=== PATIENT | male | born 1980 | race Caucasian/White ===

== ENCOUNTER 2018-06-04 08:38 | Outpatient (CLI) | payer OTHER ==
--- NOTE | 2018-06-04 12:20 | MRI Report ---
Reason: PAIN IN RIGHT SHOULDER Procedure Date: 06/04/2018 Accession Number: [id number] / [id number] Procedure: MRI - Shoulder RT W/O CPT Code: FULL RESULT: EXAM: RIGHT SHOULDER MRI WITHOUT CONTRAST EXAM DATE: 06/04/2018 09:46 AM. CLINICAL HISTORY: Pain in right shoulder. COMPARISON: None. TECHNIQUE: Multiplanar, multisequence T1-weighted and fluid-sensitive sequences of the shoulder without contrast. Other: None. FINDINGS: Acromioclavicular Region: The acromion is type II. The acromioclavicular joint is unremarkable. The coracoacromial and coracoclavicular ligaments are intact. There is a subacromial bursal effusion. Glenohumeral Region: No subluxation. No effusion or loose bodies. The articular cartilage is unremarkable. Bone Marrow: No fracture, marrow edema or bone lesions. Labrum: The labrum is unremarkable on this nonarthrographic study. Musculature/Rotator Cuff: There is mild supraspinatus tendinosis. There is a low-grade partial-thickness tear of the humeral surface fibers of supraspinatus measuring approximately 9 x 15 mm. Infraspinatus and subscapularis appear unremarkable. Biceps Tendon: The long head of the biceps tendon and biceps amparo are intact. Other: The subcutaneous tissues are unremarkable. IMPRESSION: 1. Subacromial bursal effusion. 2. Tendinosis and a partial-thickness tear of the humeral surface fibers of the supraspinatus. [facility] MUSCULOSKELETAL RADIOLOGY SECTION
== END 2018-06-04 08:39 | disposition home or self-care (01) ==
LOC: DI 08:38
PROVIDERS: ATTEND General Practice
DX: M75.101 Unspecified rotator cuff tear or rupture of right shoulder, not specified as traumatic (principal); M75.91 Shoulder lesion, unspecified, right shoulder

== ENCOUNTER 2018-08-24 07:27 | Outpatient (CLI) | payer OTHER ==
--- NOTE | 2018-08-24 12:03 | MRI Report ---
Reason: RADICULOPATHY,CERVICAL REGION,CERVICALGIA Procedure Date: 08/24/2018 Accession Number: [id number] / [id number] Procedure: MRI - Cervical Spine W/O CPT Code: FULL RESULT: EXAM: MRI CERVICAL SPINE WITHOUT CONTRAST EXAM DATE: 08/24/2018 08:06 AM. CLINICAL HISTORY: Cervical region radiculopathy. Cervicalgia. Neck pain and right upper extremity pain. History of trauma. COMPARISONS: None. TECHNIQUE: Multiplanar, multisequence T1-weighted and fluid-sensitive sequences of the cervical spine without contrast. Other: None. FINDINGS: No suspicious marrow replacement is seen. Grade 1 retrolisthesis of C5 relative to C6 is seen. Loss of disk space height, diskogenic endplate edema and diskogenic endplate irregularity are present at this level particularly towards the right. Anterior disk protrusion and osteophyte formation are present at C5-C6. In the right occipital condyle note is made of a small hemangioma. No abnormal signal is seen in the cervical spinal cord. C2-C3: Unremarkable disk space. C3-C4: A minimal posterior disk protrusion is seen. Disk/osteophyte complex formation is seen involving the posterior lateral margin of the disk on the left. There is uncovertebral joint spurring on the left. Mild left foraminal stenosis is present. C4-C5: Minimal posterior disk protrusion is seen. A tiny posterior annular fissure seen on the left. C5-C6: A moderate posterior protrusion of disk and osteophyte is seen greater towards the right. There is effacement of ventral CSF space and flattening of the ventral cervical spinal cord. Bilateral uncovertebral joint spurring is seen. Mild to moderate left and moderate to severe right foraminal stenosis is present. C6-C7: A mild left paracentral disk protrusion is superimposed on a minimal posterior disk protrusion. There is flattening of the left ventral cervical spinal cord. Bilateral uncovertebral joint spurring is seen. There is very mild left foraminal stenosis. There is right foraminal narrowing. C7-T1: Unremarkable disk space. IMPRESSION: 1. Degenerative disk disease and osteophyte formation at C5-C6 result in mild central canal stenosis and bilateral foraminal stenosis with the foraminal stenosis greater on the right relative to the left. 2. There is a left-sided disk protrusion at C6-C7 which demonstrates mass effect on the left ventral to the cervical spinal cord. The central canal is borderline to mildly stenotic at this level. 3. Minimal degenerative disk disease is seen at C3-C4 and C4-C5. There is mild left foraminal stenosis at C3-C4. [facility]
== END 2018-08-24 07:28 | disposition home or self-care (01) ==
LOC: DI 07:27
PROVIDERS: ATTEND Orthopaedic Surgery
DX: M50.11 Cervical disc disorder with radiculopathy, high cervical region (principal); M50.123 Cervical disc disorder at C6-C7 level with radiculopathy; M48.02 Spinal stenosis, cervical region; M25.78 Osteophyte, vertebrae
CPT/HCPCS: 72141

== ENCOUNTER 2018-10-23 08:44 | Outpatient (CLI) | payer OTHER ==
--- NOTE | 2018-10-23 15:47 | MRI Report ---
Reason: OTHER SPONDYLOSIS W/RADICULOPATHY, LUMBOSACRAL REG Procedure Date: 10/23/2018 Accession Number: [id number] / [id number] Procedure: MRI - Lumbar Spine W/O CPT Code: FULL RESULT: EXAM: MRI LUMBAR SPINE WITHOUT CONTRAST EXAM DATE: 10/23/2018 10:21 AM. CLINICAL HISTORY: Other spondylosis with radiculopathy, lumbosacral. COMPARISON: None. TECHNIQUE: Multiplanar, multisequence T1-weighted and fluid-sensitive sequences of the lumbar spine from T12 to S1 without contrast. Other: None. FINDINGS: Grade 1 retrolisthesis of L3 relative to L4, L4 relative to L5, and L5 relative to S1 is noted. Loss of disk space height is seen at L5-S1. No abnormal signal is seen in the conus medullaris. No suspicious marrow replacement is seen. L1-L2 and L2-L3: No posterior disk protrusion. L3-L4: Minimal posterior disk protrusion is present with a posterior annular fissure. L4-L5: A mild posterior disk protrusion is seen greater towards the left of midline with flattening of the left ventral thecal sac. Superior lateral recess stenosis is seen on the left. Central canal is borderline. L5-S1: A minimal posterior disk protrusion is seen greater towards the right. Disk material extends near the right S1 nerve root as it exits the thecal sac. No foraminal stenosis. Facet/ligamentum flavum hypertrophy is seen in the mid and lower lumbar spine. There is again generally shallow central canal in mid and lower lumbar spine. IMPRESSION: 1. Degenerative disk disease is seen from L3 through S1. 2. A left-sided disk protrusion flattens the left ventral thecal sac at L4-L5 and results in superior lateral recess stenosis on the left. 3. A right-sided disk protrusion at L5-S1 extends near the right S1 nerve root as it exits the thecal sac. 4. A posterior annular fissure is seen at L3-L4. Comment: The following findings are so common in adults without low back pain that while we report their presence, they must be interpreted with caution and in the context of the clinical situation. (Reference Isabellek et al, Spine 2001) Prevalence of findings in patients without low back pain: Disk degeneration (any evidence): 92% Disk desiccation/T2 signal loss: 83% Disk height loss: 56% Disk bulge: 64% Disk protrusion: 32% Annular tear/high intensity zone: 38% [facility]
== END 2018-10-23 08:45 | disposition home or self-care (01) ==
LOC: DI 08:44
PROVIDERS: ATTEND Orthopaedic Surgery
DX: M51.36 Other intervertebral disc degeneration, lumbar region (principal); M51.37 Other intervertebral disc degeneration, lumbosacral region; M47.9 Spondylosis, unspecified; M51.26 Other intervertebral disc displacement, lumbar region; M53.86 Other specified dorsopathies, lumbar region; M51.27 Other intervertebral disc displacement, lumbosacral region
CPT/HCPCS: 72148

== ENCOUNTER 2019-10-22 06:33 | Day surgery (SDC) | payer OTHER ==
[2019-10-22] MEDS ORDERED: ONDANSETRON 4 MG/2 ML VIAL IVP ONE (06:34)
[2019-10-22] MEDS ORDERED: fentaNYL 250 MCG/5 ML VIAL IVP ONE (06:34)
[2019-10-22] MEDS ORDERED: PROPOFOL 200 MG/20 ML VIAL IVP ONE (06:34)
[2019-10-22] MEDS ORDERED: GLYCOPYRROLATE 1 MG/5 ML VIAL IVP ONE (06:34)
[2019-10-22] MEDS ORDERED: KETOROLAC 30 MG/ML VIAL IVP ONE (06:34)
[2019-10-22] MEDS ORDERED: HYDROmorphone 1 MG/ML SYRINGE IM ONE (06:34)
[2019-10-22] MEDS ORDERED: DEXAMETHASONE 10 MG/ML VIAL IVP ONE (06:34)
[2019-10-22] MEDS ORDERED: NEOSTIGMINE 1 MG/1 ML 10 ML MDV IVP ONE (06:34)
[2019-10-22] MEDS ORDERED: MIDAZOLAM 2 MG/2 ML VIAL IVP ONE (06:34)
[2019-10-22] MEDS ORDERED: LACTATED RINGERS 1,000 ML IV ONE ×2 (06:42→08:35)
[2019-10-22] MEDS ORDERED: cefTRIAXone 2 GM VIAL ONE (06:48)
--- NOTE | 2019-10-22 07:19 | ANESTHESIA ---
Pre-Anesthesia VS, & Labs - Diagnosis Right AC joint arthritis - Procedure Right shoulder SLAP repair Vital Signs: Temp Pulse Resp BP Pulse Ox 36.3 C L 68 16 141/106 H 97 10/22/19 06:45 10/22/19 06:45 10/22/19 06:45 10/22/19 06:45 10/22/19 06:45 Height 6 ft Weight (kg) 126.1 kg - NPO >8 hours - Lab Results Lab results reviewed: No Home Medications and Allergies Home Medications: Ambulatory Orders No Known Home Medications 10/20/19 No Known Home Medications 10/20/19 Allergies/Adverse Reactions: Allergies Allergy/AdvReac Type Severity Reaction Status Date / Time No Known Drug Allergies Allergy Verified 10/20/19 14:35 Anes History & Medical History - Anesthetic History Anesthesia Complications: reports: No previous complications Family history of Anesthesia Complications: Denies Family history of Malignant Hyperthermia: Denies - Medical History Cardiovascular: reports: None Pulmonary: reports: None Gastrointestinal: reports: None Urinary: reports: None Neuro: reports: None Musculoskeletal: reports: None, Chronic back pain, Other Endocrine/Autoimmune: reports: None Blood Disorders: reports: None Skin: reports: None Smoking Status: Never smoker Psychosocial: reports: No issues indicated - Surgical History General: Cholecystectomy, Appendectomy Exam General: Alert Dental: WNL, Other (Permanent retainer) Mouth Opening: Greater than 4 Fingerbreadths Neck Mobility: Normal Mallampati classification: II Thyromental Distance: greater than 6 cm Respiratory: Lungs clear Cardiovascular: Regular rate Plan Anesthesia Type: General Consent for Procedure(s) Verified and Reviewed: Yes Code Status: Attempt Resuscitation ASA classification: 1-Healthy patient Is this case an emergency?: No
[2019-10-22] MEDS ORDERED: BUPIVACAINE 0.25% PF 30 ML VIAL SUBQ ONE (08:34)
[2019-10-22] MEDS ORDERED: BUPIVACAINE 0.25% PF 30 ML VIAL ONE (08:37)
[2019-10-22] MEDS ORDERED: ACETAMINOPHEN 1,000 MG/100 ML 100 ML IV ONE (10:01)
[2019-10-22] MEDS ORDERED: ONDANSETRON 4 MG/2 ML VIAL IVP PRN (10:16)
[2019-10-22] MEDS ORDERED: oxyCODONE 5 MG TABLET PO PRN (10:16)
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
[2019-10-22] MEDS ORDERED: ONDANSETRON 4 MG/2 ML VIAL ONE (10:39)
[2019-10-22] MEDS ORDERED: oxyCODONE 5 MG TABLET ONE (11:05)
[2019-10-22 12:05] VITALS: BP 136/83
== END 2019-10-22 06:34 | disposition home or self-care (01) ==
LOC: SDS 06:33
PROVIDERS: ATTEND Orthopaedic Surgery
DX: M19.011 Primary osteoarthritis, right shoulder (principal); Z72.0 Tobacco use

== ENCOUNTER 2020-05-01 09:32 | Emergency (ER) | payer OTHER ==
[2020-05-01] MEDS ORDERED: KETOROLAC 30 MG/ML VIAL IVP STA (09:48)
[2020-05-01 10:14] LABS: BASOPHILS % (AUTO) 0.4 %; EOSINOPHILS % (AUTO) 0.1 %; HGB - HEMOGLOBIN 16.3 g/dL (14.0-18.0); LYMPHOCYTES # (AUTO) 1.3 10^3/uL (1.5-3.5); MEAN CORPUSCULAR HEMOGLOBIN 33.1 pg (27.0-31.0); MEAN CORPUSCULAR HGB CONC 35.1 g/dL (32.0-36.0); MEAN CORPUSCULAR VOLUME 94.1 fL (80.0-94.0); MEAN PLATELET VOLUME 10.5 fL (7.4-11.4); MONOCYTES # (AUTO) 0.6 10^3/uL (0.0-1.0); MONOCYTES % (AUTO) 6.5 %; NEUTROPHILS # (AUTO) 7.8 10^3/uL (1.5-6.6); NEUTROPHILS % (AUTO) 79.6 %; PLT - PLATELET COUNT 194 10^3/uL (130-450); RED BLOOD COUNT 4.93 10^6/uL (4.70-6.10); RED CELL DISTRIBUTION WIDTH 12.4 % (12.0-15.0); WHITE BLOOD COUNT 9.8 x10^3/uL (4.8-10.8)
[2020-05-01 10:24] LABS: ALBUMIN/GLOBULIN RATIO 1.7 (1.0-2.2); CALCIUM 10.3 mg/dL (8.5-10.3); CREATININE 1.7 mg/dL (0.6-1.2); TOTAL PROTEIN 7.9 g/dL (6.7-8.2)
[2020-05-01] MEDS ORDERED: LIDOCAINE-MPF 2% 9 ML in SODIUM CHLORIDE 0.9% 50 ML IV STA (10:24)
[2020-05-01] MEDS ORDERED: SODIUM CHLORIDE 0.9% 1,000 ML IV STA ×3 (10:25→13:06)
--- NOTE | 2020-05-01 10:50 | CT Report ---
PROCEDURE: Abdomen/Pelvis WO INDICATIONS: L flank pain, poss renal stone? TECHNIQUE: Noncontrast 5 mm thick sections acquired from the diaphragms to the symphysis. 5 mm coronal and sagi ttal reformats were then performed. For radiation dose reduction, the following was used: automated exposure control, adjustment of mA and/or kV according to patient size. COMPARISON: None. FINDINGS: Image quality: Excellent. ABDOMEN: Lung bases: Lung bases are clear. Heart size is normal. Solid organs: Liver and spleen are normal in size. Gallbladder is surgically absent. Pancreas is n ormal in contours. No adrenal nodules. Kidneys are normal in size. Moderate left-sided hydronephros is and perinephric fat stranding is seen. Prominence of proximal to mid left ureter is also seen with a 4 mm left mid ureteral stone. There is no right-sided hydronephrosis or perinephric fat stranding. Right ureter is within normal limits. Peritoneum and bowel: Unenhanced bowel loops demonstrate normal wall thickness and caliber. No free fluid or air. Nodes and vessels: No retroperitoneal or mesenteric adenopathy by size criteria. Aorta and inferior vena cava are normal in caliber. Miscellaneous: No ventral hernias. PELVIS: Genitourinary: Bladder wall thickness is normal. Miscellaneous: No inguinal hernias or adenopathy. Bones: No suspicious bony lesions. No vertebral body compression fractures. IMPRESSION: 1. 4 mm mid left ureteral stone with mild to moderate left-sided hydronephrosis and perinephric fat s tranding. No right-sided renal stone or hydronephrosis. Normal-appearing right ureter and urinary nelly dder. 2. No bowel obstruction. No abnormal bowel wall thickening. No free fluid or free air. Reviewed by: Emre Dow MD on 05/01/2020 10:49 AM PDT Approved by: Emre Dow MD on 05/01/2020 10:49 AM PDT Station ID: [id number]
--- NOTE | 2020-05-01 11:00 | ED Physician Documentation ---
History of Present Illness - Stated complaint Stated Complaint: BACK PX/L SIDE PX - Chief complaint Chief Complaint: Abd Pain - History obtained from History obtained from: Patient, Family - History of Present Illness Timing: Today Pain level max: 10 Pain level now: 10 - Additonal information Additional information: 40-year-old male presents to the emergency department left flank pain. States started suddenly. Nothing makes it better or worse. Blood in his urine. States he thinks he had one kidney stone in the past but is unsure. No fevers. No vomiting. No diarrhea. Review of Systems Constitutional: denies: Fever, Chills GI: denies: Nausea, Vomiting, Diarrhea Skin: denies: Rash Musculoskeletal: denies: Neck pain, Back pain Neurologic: denies: Headache PD PAST MEDICAL HISTORY - Past Medical History Cardiovascular: None Respiratory: None Neuro: None Endocrine/Autoimmune: None GI: None : None HEENT: None Psych: None Musculoskeletal: None, Chronic back pain, Other Derm: None - Past Surgical History General: Cholecystectomy, Appendectomy - Present Medications Home Medications: Ambulatory Orders Medication Instructions Recorded Confirmed Ibuprofen [Motrin] 800 mg PO Q8H PRN #30 tablet 05/01/20 Naproxen 500 mg PO 05/01/20 Oxycodone HCl/Acetaminophen 1 - 2 each PO Q6H PRN #14 tablet 05/01/20 [Percocet 5-325 mg Tablet] Tamsulosin [Flomax] 0.4 mg PO DAILY #14 capsule 05/01/20 - Allergies Allergies/Adverse Reactions: Allergies Allergy/AdvReac Type Severity Reaction Status Date / Time No Known Drug Allergies Allergy Verified 10/20/19 14:35 - Social History Does the pt smoke?: No Smoking Status: Never smoker Does the pt have substance abuse?: No - Immunizations Immunizations are current?: No PD ED PE NORMAL - Vitals Vital signs reviewed: Yes - General General: Alert and oriented X 3, Other (Appears uncomfortable) - HEENT HEENT: Moist mucous membranes - Neck Neck: Supple, no meningeal sign - Cardiac Cardiac: RRR - Respiratory Respiratory: No respiratory distress, Clear bilaterally - Abdomen Abdomen: Soft, Non tender, Non distended - Back Back: No CVA TTP - Derm Derm: Warm and dry - Neuro Neuro: Alert and oriented X 3 - Psych Psych: Normal mood, Normal affect Results - Vitals Vitals: Vital Signs - 24 hr 05/01/20 05/01/20 05/01/20 09:42 11:47 12:26 Temperature 36.6 C Heart Rate 96 90 Respiratory 24 20 Rate Blood Pressure 176/111 H 170/110 H 136/107 H O2 Saturation 100 100 Oxygen O2 Source Room air - Labs Labs: Laboratory Tests 05/01/20 05/01/20 05/01/20 10:04 10:04 13:00 WBC 9.8 RBC 4.93 Hgb 16.3 Hct 46.4 MCV 94.1 H MCH 33.1 H MCHC 35.1 RDW 12.4 Plt Count 194 MPV 10.5 Neut # (Auto) 7.8 H Lymph # (Auto) 1.3 L Taliaferro # (Auto) 0.6 Eos # (Auto) 0.0 Baso # (Auto) 0.0 Absolute Nucleated RBC 0.00 Nucleated RBC % 0.0 Sodium 137 Potassium 3.9 Chloride 99 L Carbon Dioxide 27 Anion Gap 11.0 BUN 18 Creatinine 1.7 H Estimated GFR (MDRD) 44 L Glucose 122 H Calcium 10.3 Total Bilirubin 1.0 AST 32 ALT 39 Alkaline Phosphatase 61 Total Protein 7.9 Albumin 5.0 Globulin 2.9 Albumin/Globulin Ratio 1.7 Lipase 28 Urine Color DARK YELLOW Urine Clarity CLOUDY Urine pH 7.0 Ur Specific [place] 1.015 Urine Protein 30 H Urine Glucose (UA) NEGATIVE Urine Ketones TRACE Urine Occult Blood LARGE H Urine Nitrite NEGATIVE Urine Bilirubin NEGATIVE Urine Urobilinogen 0.2 (NORMAL) Ur Leukocyte Esterase NEGATIVE Urine RBC TNTC H Urine WBC 4-5 Ur Squamous Epith Cells FEW Squamous Urine Bacteria None Seen Ur Microscopic Review INDICATED Urine Culture Comments NOT INDICATED - Rads (name of study) CT abdomen pelvis Radiology: Prelim report reviewed, EMP read contemporaneously, See rad report (4 mm left ureteral stone) PD MEDICAL DECISION MAKING - ED course Complexity details: reviewed results, re-evaluated patient, considered differential, d/w patient ED course: 40-year-old male with a 4 mm left mid ureteral stone. Pain well controlled. Given IV fluids, Toradol, lidocaine, Flomax and oxycodone. Patient is well- appearing, nontoxic. No evidence of secondary infection. Patient counseled regarding signs and symptoms for which I believe and urgent re-evaluation would be necessary. Patient with good understanding of and agreement to plan and is comfortable going home at this time This document was made in part using voice recognition software. While efforts are made to proofread this document, sound alike and grammatical errors may occur. Departure - Departure Disposition: 01 Home, Self Care Clinical Impression: Kidney stone on left side Condition: Good Instructions: ED Stone Renal W Colic Follow-Up: EMILY SINGH [Primary Care Provider] - Within 1 week Prescriptions: Tamsulosin [Flomax] 0.4 mg PO DAILY #14 capsule Ibuprofen [Motrin] 800 mg PO Q8H PRN #30 tablet PRN Reason: PAIN &/OR FEVER Oxycodone HCl/Acetaminophen [Percocet 5-325 mg Tablet] 1 - 2 each PO Q6H PRN #14 tablet PRN Reason: pain Comments: Use medications as needed for pain. Return if you worsen. Drink plenty of water at home. You do have a 4 mm left ureteral stone. This should be able to be passed. Do not drink alcohol or drive while on narcotic pain medicine. Note that many narcotic pain relievers also contain tylenol/acetaminophen. Please ensure that your total dose of acetaminophen from all sources does not exceed 3 grams (3000mg) per day. You may constipated on this medication, take a stool softener such as "Colace" twice a day while you are on it. Also recommend a rltm-[id number] laxative such as senna or MiraLAX any day that you do not have a bowel movement. If you received narcotic pain medication in the emergency department, do not drive or operate machinery for the next 24 hours. Discharge Date/Time: 05/01/20 13:43
[2020-05-01] MEDS ORDERED: HYDROmorphone 1 MG/ML CARPUJECT IVP STA (11:38)
[2020-05-01] MEDS ORDERED: TAMSULOSIN 0.4 MG CAPSULE PO STA (12:16)
[2020-05-01] MEDS ORDERED: oxyCODONE 5 MG TABLET PO STA (12:16)
[2020-05-01 12:26] VITALS: BP 136/107
[2020-05-01 13:10] LABS: BILIRUBIN,URINE NEGATIVE (NEGATIVE); GLUCOSE, URINE (UA) NEGATIVE (NEGATIVE); KETONES,URINE (UA) TRACE mg/dL (NEGATIVE); LEUKOCYTE ESTERASE, URINE NEGATIVE (NEGATIVE); NITRITE,URINE NEGATIVE (NEGATIVE); OCCULT BLOOD,URINE LARGE (NEGATIVE); PROTEIN,URINE 30 mg/dL (NEGATIVE); UROBILINOGEN,URINE 0.2 (NORMAL) E.U./dL (NORMAL)
[2020-05-01 13:11] LABS: CLARITY,URINE CLOUDY (CLEAR)
[2020-05-01 13:20] LABS: BACTERIA,URINE None Seen /HPF (None Seen); RBC,URINE TNTC /HPF (0-5); SQUAMOUS EPITHELIAL CELL,UR FEW Squamous (<= Few)
== END 2020-05-01 13:43 | disposition home or self-care (01) ==
LOC: ED 09:32
DX: N13.2 Hydronephrosis with renal and ureteral calculous obstruction (principal)
CPT/HCPCS: 36415; 74176; 80053; 81001; 83690; 85025; 96361; 96365; 96375; 99284; A9270; J1170; J7040; 81003; 87086

== ENCOUNTER 2020-05-07 20:13 | Emergency (ER) | payer OTHER ==
[2020-05-07 20:38] LABS: BILIRUBIN,URINE NEGATIVE (NEGATIVE); GLUCOSE, URINE (UA) NEGATIVE (NEGATIVE); KETONES,URINE (UA) NEGATIVE (NEGATIVE); LEUKOCYTE ESTERASE, URINE NEGATIVE (NEGATIVE); NITRITE,URINE NEGATIVE (NEGATIVE); OCCULT BLOOD,URINE SMALL (NEGATIVE); PH,URINE 5.5 PH (5.0-7.5); PROTEIN,URINE NEGATIVE (NEGATIVE); UROBILINOGEN,URINE 0.2 (NORMAL) E.U./dL (NORMAL)
[2020-05-07 20:39] LABS: CLARITY,URINE CLEAR (CLEAR)
[2020-05-07 20:46] LABS: BACTERIA,URINE None Seen /HPF (None Seen); SQUAMOUS EPITHELIAL CELL,UR NONE SEEN (<= Few)
[2020-05-07] MEDS ORDERED: SODIUM CHLORIDE 0.9% 1,000 ML IV STA (20:52)
[2020-05-07] MEDS ORDERED: LIDOCAINE-MPF 2% 9 ML in SODIUM CHLORIDE 0.9% 50 ML IV STA (20:52)
[2020-05-07] MEDS ORDERED: HYDROmorphone 1 MG/ML CARPUJECT IVP STA (20:52)
--- NOTE | 2020-05-07 20:56 | ED Physician Documentation ---
PD HPI ABD PAIN - Stated complaint Stated Complaint: MALE - Chief complaint Chief Complaint: Abd Pain - History obtained from History obtained from: Patient - History of Present Illness Timing - onset: How many weeks ago (1) Timing - duration: Weeks (1) Timing - details: Abrupt onset Pain level max: 10 Pain level now: 10 Quality: Aching, Pain Improved by: Other (Nothing) Worsened by: Other (Nothing) Associated symptoms: Nausea. No: Fever, Vomiting, Hematemesis, Diarrhea, Constipation, Melena, Hematochezia, Dysuria, Hematuria, Chest pain Recently seen: Clinic, Emergency Dept - Additional information Additional information: 40-year-old male was seen here 1 week ago. Diagnosed with a left sided mid ureteral stone. 4 mm. States feels like the stone has moved down to his bladder, but is having continued pain. No fevers. No chills. No vomiting. He is now out of pain medication. Nothing makes it better or worse. Review of Systems Ten Systems: 10 systems reviewed and negative Constitutional: denies: Fever, Chills Ears: denies: Ear pain Nose: denies: Rhinorrhea / runny nose, Congestion Respiratory: denies: Cough GI: denies: Vomiting, Diarrhea Skin: denies: Rash Musculoskeletal: denies: Neck pain, Back pain Neurologic: denies: Focal weakness, Numbness, Confused, Headache PD PAST MEDICAL HISTORY - Past Medical History Past Medical History: Yes Cardiovascular: None Respiratory: None Neuro: None Endocrine/Autoimmune: None GI: None : Kidney stones HEENT: None Psych: None Musculoskeletal: None, Chronic back pain, Other Derm: None Other Past Medical History: Recent dx of Kidney Stones - Past Surgical History Past Surgical History: Yes General: Cholecystectomy, Appendectomy - Present Medications Home Medications: Ambulatory Orders Medication Instructions Recorded Confirmed Ibuprofen [Motrin] 800 mg PO Q8H PRN #30 tablet 05/01/20 Naproxen 500 mg PO 05/01/20 Oxycodone HCl/Acetaminophen 1 - 2 each PO Q6H PRN #14 tablet 05/01/20 [Percocet 5-325 mg Tablet] Tamsulosin [Flomax] 0.4 mg PO DAILY #14 capsule 05/01/20 Ibuprofen [Motrin] 800 mg PO Q8H PRN #30 tablet 05/07/20 Ondansetron Odt [Zofran] 4 mg TL Q6H PRN #10 tablet 05/07/20 Oxycodone HCl/Acetaminophen 1 tab PO Q6H PRN #14 tablet 05/07/20 [Oxycodone-Acetaminophen 10-325] Tamsulosin [Flomax] 0.4 mg PO DAILY #14 capsule 05/07/20 - Allergies Allergies/Adverse Reactions: Allergies Allergy/AdvReac Type Severity Reaction Status Date / Time No Known Drug Allergies Allergy Verified 05/07/20 20:20 - Social History Does the pt smoke?: No Smoking Status: Never smoker Does the pt have substance abuse?: No - Immunizations Immunizations are current?: No - POLST Patient has POLST: No PD ED PE NORMAL - Vitals Vital signs reviewed: Yes - General General: Alert and oriented X 3, No acute distress, Other (patient appears in pain) - HEENT HEENT: PERRL, Moist mucous membranes - Neck Neck: Supple, no meningeal sign - Cardiac Cardiac: RRR - Respiratory Respiratory: No respiratory distress, Clear bilaterally - Abdomen Abdomen: Soft, Non tender, Non distended - Back Back: No spinal TTP, Other (L CVAT) - Derm Derm: Warm and dry - Extremities Extremities: No calf tenderness / cord - Neuro Neuro: Alert and oriented X 3 - Psych Psych: Normal mood, Normal affect Results - Vitals Vitals: Vital Signs - 24 hr 05/07/20 05/07/20 05/07/20 20:20 21:12 21:34 Temperature 37.2 C Heart Rate 77 70 68 Respiratory 16 16 15 Rate Blood Pressure 173/97 H 175/104 H 152/97 H O2 Saturation 100 100 99 05/07/20 22:00 Temperature Heart Rate 78 Respiratory 16 Rate Blood Pressure 152/97 H O2 Saturation 100 Oxygen O2 Source Room air - Labs Labs: Laboratory Tests 05/07/20 05/07/20 05/07/20 20:30 21:00 21:00 WBC 7.8 RBC 3.83 L Hgb 12.4 L Hct 36.6 L MCV 95.6 H MCH 32.4 H MCHC 33.9 RDW 12.2 Plt Count 168 MPV 10.6 Neut # (Auto) 5.6 Lymph # (Auto) 1.1 L Pershing # (Auto) 1.0 Eos # (Auto) 0.1 Baso # (Auto) 0.0 Absolute Nucleated RBC 0.00 Nucleated RBC % 0.0 Sodium 135 Potassium 4.1 Chloride 100 L Carbon Dioxide 30 Anion Gap 5.0 L BUN 21 H Creatinine 2.5 H Estimated GFR (MDRD) 28 L Glucose 102 H Calcium 8.3 L Total Bilirubin 0.4 AST 16 ALT 28 Alkaline Phosphatase 77 Total Protein 6.7 Albumin 3.5 Globulin 3.2 Albumin/Globulin Ratio 1.1 Lipase 25 Urine Color YELLOW Urine Clarity CLEAR Urine pH 5.5 Ur Specific [place] 1.020 Urine Protein NEGATIVE Urine Glucose (UA) NEGATIVE Urine Ketones NEGATIVE Urine Occult Blood SMALL H Urine Nitrite NEGATIVE Urine Bilirubin NEGATIVE Urine Urobilinogen 0.2 (NORMAL) Ur Leukocyte Esterase NEGATIVE Urine RBC 11-25 H Urine WBC 0-3 Ur Squamous Epith Cells NONE SEEN Urine Bacteria None Seen Ur Microscopic Review INDICATED Urine Culture Comments NOT INDICATED PD MEDICAL DECISION MAKING - ED course Complexity details: reviewed old records, reviewed results, re-evaluated patient, considered differential, d/w patient, d/w family ED course: 40-year-old male presents to the emergency department with ongoing left flank pain from a known 4 mm ureteral stone. The pain is now moved down towards the bladder. Likely that the stone is moved. Feels much better after Dilaudid, l idocaine. Will prescribe pain medication for home. No evidence of UTI. No fevers. No evidence of sepsis. Discussed repeat CT, but will hold at this time and see how he progresses. Mild acute renal insufficiency, should improve when the stone passes. Patient counseled regarding signs and symptoms for which I believe and urgent re-evaluation would be necessary. Patient with good understanding of and agreement to plan and is comfortable going home at this time This document was made in part using voice recognition software. While efforts are made to proofread this document, sound alike and grammatical errors may occur. Departure - Departure Disposition: 01 Home, Self Care Clinical Impression: Ureteral stone Condition: Good Instructions: ED Stone Renal W Colic Follow-Up: EMILY SINGH [Primary Care Provider] - Within 3 Days Prescriptions: Tamsulosin [Flomax] 0.4 mg PO DAILY #14 capsule Ibuprofen [Motrin] 800 mg PO Q8H PRN #30 tablet PRN Reason: PAIN &/OR FEVER Oxycodone HCl/Acetaminophen [Oxycodone-Acetaminophen 10-325] 1 tab PO Q6H PRN #14 tablet PRN Reason: Abdominal Pain Ondansetron Odt [Zofran] 4 mg TL Q6H PRN #10 tablet PRN Reason: Nausea / Vomiting Comments: Return if you worsen. Drink plenty of fluids. Follow-up with your doctor for further care. Do not drink alcohol or drive while on narcotic pain medicine. Note that many narcotic pain relievers also contain tylenol/acetaminophen. Please ensure that your total dose of acetaminophen from all sources does not exceed 3 grams (3000mg) per day. You may constipated on this medication, take a stool softener such as "Colace" twice a day while you are on it. Also recommend a [id number] laxative such as senna or MiraLAX any day that you do not have a bowel movement. If you received narcotic pain medication in the emergency department, do not drive or operate machinery for the next 24 hours.
[2020-05-07] MEDS ORDERED: LIDOCAINE-MPF 2% 5 ML VIAL ONE (21:05)
[2020-05-07 21:10] LABS: BASOPHILS % (AUTO) 0.4 %; EOSINOPHILS # (AUTO) 0.1 10^3/uL (0.0-0.7); EOSINOPHILS % (AUTO) 1.2 %; HGB - HEMOGLOBIN 12.4 g/dL (14.0-18.0); LYMPHOCYTES # (AUTO) 1.1 10^3/uL (1.5-3.5); LYMPHOCYTES % (AUTO) 13.8 %; MEAN CORPUSCULAR HEMOGLOBIN 32.4 pg (27.0-31.0); MEAN CORPUSCULAR HGB CONC 33.9 g/dL (32.0-36.0); MEAN CORPUSCULAR VOLUME 95.6 fL (80.0-94.0); MEAN PLATELET VOLUME 10.6 fL (7.4-11.4); MONOCYTES % (AUTO) 12.5 %; NEUTROPHILS # (AUTO) 5.6 10^3/uL (1.5-6.6); NEUTROPHILS % (AUTO) 71.8 %; PLT - PLATELET COUNT 168 10^3/uL (130-450); RED BLOOD COUNT 3.83 10^6/uL (4.70-6.10); RED CELL DISTRIBUTION WIDTH 12.2 % (12.0-15.0); WHITE BLOOD COUNT 7.8 x10^3/uL (4.8-10.8)
[2020-05-07 21:26] LABS: ALBUMIN 3.5 g/dL (3.2-5.5); ALBUMIN/GLOBULIN RATIO 1.1 (1.0-2.2); BILIRUBIN,TOTAL 0.4 mg/dL (0.2-1.0); CALCIUM 8.3 mg/dL (8.5-10.3); CREATININE 2.5 mg/dL (0.6-1.2); TOTAL PROTEIN 6.7 g/dL (6.7-8.2)
[2020-05-07 21:36] VITALS: BP 152/97
[2020-05-07] MEDS ORDERED: oxyCODONE 5 MG TABLET PO STA (21:43)
[2020-05-07] MEDS ORDERED: oxyCODONE/ACET 5/325 Prepack 4 PO STA (21:43)
== END 2020-05-07 22:30 | disposition home or self-care (01) ==
LOC: ED 20:13
DX: N20.1 Calculus of ureter (principal); N28.9 Disorder of kidney and ureter, unspecified
CPT/HCPCS: 36415; 80053; 81001; 83690; 85025; 96365; 96375; 99283; 99284; A9270; J1170; J7040; 81003; 87086